=== PATIENT | female | born 1950 | race Caucasian/White ===

== ENCOUNTER 2018-10-21 03:11 | Inpatient (IN) ==
--- NOTE | 2018-10-21 03:38 | PROVIDER DOCUMENTATION ---
HPI-Respiratory General - General Stated Complaint: rhonchi Time Seen by Provider: 10/21/18 03:28 Source: EMS Allergies/Adverse Reactions: Patient Allergies Allergy/AdvReac Type Severity Reaction Status Date / Time Penicillins Allergy RASH Verified 06/24/14 16:35 Home Medications: Home Medication List Medication Instructions Recorded Confirmed Last Taken Type Acetaminophen [Tylenol] 325 mg PO Q6H PRN PRN 06/24/14 06/24/14 06/23/14 17:00 History Bisacodyl [Dulcolax] 10 mg NV DAILY 06/24/14 06/24/14 06/22/14 21:00 History Calcium Carbonate/Vitamin D3 1 tab PO DAILY 06/24/14 06/24/14 06/24/14 09:00 History [Caltrate 600 Plus D3 Tablet] Divalproex [Depakote] 125 mg PO BID 06/24/14 06/24/14 06/24/14 09:00 History Docusate Sodium [Silace] 20 mg PO BID 06/24/14 06/24/14 06/23/14 09:00 History Duloxetine [Cymbalta] 30 mg PO DAILY 06/24/14 06/24/14 06/24/14 09:00 History Furosemide [Lasix] 20 mg PO DAILY 06/24/14 06/24/14 06/24/14 09:00 History Lactose-Reduced Food [Ensure 1 dose PO BID 06/24/14 06/24/14 06/24/14 09:00 History Original] Lactulose 30 ml PO DAILY 06/24/14 06/24/14 06/24/14 08:00 History M-Vit,Tx,Iron,Mins/Calc/Folic 1 tab PO DAILY 06/24/14 06/24/14 06/24/14 09:00 History [Therapeutic M Tablet] Metoclopramide [Reglan] 10 mg PO TID AC 06/24/14 06/24/14 06/24/14 05:00 History Omeprazole [Prilosec] 20 mg PO DAILY 06/24/14 06/24/14 06/24/14 05:00 History Potassium Chloride E.r. [Micro-K] 10 meq PO DAILY 06/24/14 06/24/14 06/24/14 09:00 History Protein Hydrolysate,Milk [Liquid 30 ml PO TID 06/24/14 06/24/14 06/24/14 09:00 History Protein Fortifier] Risperidone [Risperdal] 0.5 mg PO QHS 06/24/14 06/24/14 06/23/14 21:00 History SIMVAstatin [Zocor] 40 mg PO QHS 06/24/14 06/24/14 06/24/14 History Scopolamine 1.5 mg/72 Hr Patch 1 each TD Q72H 06/24/14 06/24/14 06/24/14 07:00 History [Transderm-Scop] Sennosides/Docusate Sodium [Senna 1 tab PO BID 06/24/14 06/24/14 06/24/14 09:00 History Laxative Tablet] Clonazepam [Klonopin] 1 mg PO BID #0 06/28/14 06/24/14 06/24/14 09:00 Rx Oseltamivir [Tamiflu] 75 mg PO BID #0 capsule 06/28/14 Unknown Rx - History of Present Illness-Resp Nature of Presenting Problem: Transported from [facility] for hypoxemia and rales/rhonchi. found w/ pale color and p ox of 60%, better w/ non-rebreather in transport. Hx includes COPD,SCHIZOAFFECTIVE,BIPOLAR,ANEMIA,DEMENTIA Review of Systems - Adult - REVIEW OF SYSTEMS - ADULT Constitutional: reports: no symptoms reported, fever (?) Eyes: reports: no symptoms reported Ears, Nose, Mouth & Throat: reports: no symptoms reported Cardiovascular: reports: no symptoms reported Respiratory: reports: no symptoms reported Gastrointestinal: reports: no symptoms reported Genitourinary: reports: no symptoms reported Musculoskeletal: reports: no symptoms reported Integumentary: reports: no symptoms reported Neurological: reports: no symptoms reported Psychiatric: reports: no symptoms reported Endocrine: reports: no symptoms reported Hematologic/Lymphatic: reports: no symptoms reported Allergic/Immunologic: reports: no symptoms reported All Other Systems: Reviewed and Negative Past History - Adult - PAST MEDICAL HISTORY-ADULT Review of Records: reports: Nursing Assessment Review, Medications Reviewed, Social history reviewed & non-contributory. Major Childhood Illnesses: reports: denies history Cardiovascular: reports: denies history, CHF, HTN, hyperlipidemia Respiratory: reports: other (chronic respiratory failure) Gastrointestinal: reports: denies history Obstetrical/Gynecological: reports: denies history Genitourinary: reports: denies history Musculoskeletal: reports: denies history Neurological: reports: denies history Psychiatric: reports: anxiety Endocrine/Immune: reports: denies history, anemia Other Conditions: reports: denies history - IMMUNIZATION STATUS Childhood Immunizations: See Nurse Assessment Flu Vaccine: See Nurse Assessment - FAMILY HISTORY Family History: reviewed, not pertinent Physical Exam-General - PHYSICAL EXAM-ADULT Initial Vital Signs Reviewed: Yes - CONSTITUTIONAL General Appearance: appears well, alert, mild distress - EYES Eyes: PERRL/EOMI - HEAD, EARS, NOSE, MOUTH & THROAT HENMT: normocephalic/atraumatic, moist mucous membranes - NECK Neck: non-tender, full range of motion, supple - RESPIRATORY Respiratory: crackles, rales, rhonchi, increased rate. 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, grossly normal - PSYCHIATRIC Psych/Mental Status: normal mood/affect, disheveled, other (SIGNIFICANT BASELINE DEMENTIA AND LACK OF INSIGHT, PT IS VERBAL, WANTS COFFEE.) - HEART Score HEART Score: History: Slightly Suspicious HEART Score: ECG: Non-Specific Repolarization Disturbance/LBBB/PM HEART Score: Age: > or = 65 Years HEART Score: Risk Factors for Atherosclerotic Disease: No Risk Factors Known HEART Score: Troponin: < or = Normal Limit Total HEART Score:: 3 Progress - PLAN OF CARE/RESULTS Progress/Plan/Lab Results: Vital Signs - 8 hr 10/21/18 03:17 10/21/18 03:38 10/21/18 03:47 Temperature 98.4 F Pulse Rate 112 H 111 H 109 H Respiratory Rate 28 H 19 20 Blood Pressure 174/114 163/133 134/81 O2 Sat by Pulse Oximetry 95 93 L 10/21/18 04:01 10/21/18 04:16 10/21/18 04:32 Temperature Pulse Rate 108 H 109 H 106 H Respiratory Rate 33 H 18 19 Blood Pressure 152/101 153/106 130/72 O2 Sat by Pulse Oximetry 94 L 93 L 93 L 10/21/18 04:46 10/21/18 05:01 10/21/18 05:16 Temperature Pulse Rate 103 H 98 H 100 H Respiratory Rate 25 H 25 H 25 H Blood Pressure 160/86 139/89 129/80 O2 Sat by Pulse Oximetry 93 L 93 L 93 L 10/21/18 03:56 Influenza Screen - Final Nasopharyngeal Laboratory Results - last 24 hr 10/21/18 10/21/18 10/21/18 03:33 03:33 03:33 WBC 8.43 RBC 4.52 Hgb 14.5 Hct 48.2 H MCV 106.6 H MCH 32.1 H MCHC 30.1 L RDW Std Deviation 15.3 H Plt Count 151 MPV 12.1 H Immature Gran % (Auto) 1.1 H Neut % (Auto) 68.8 Lymph % (Auto) 18.5 L Arthur % (Auto) 8.7 Eos % (Auto) 2.4 Baso % (Auto) 0.5 Immature Gran # (Auto) 0.09 H Neut # (Auto) 5.81 Lymph # (Auto) 1.56 Arthur # (Auto) 0.73 H Eos # (Auto) 0.20 Baso # (Auto) 0.04 Sodium 148 H Potassium 4.4 Chloride 103 Carbon Dioxide 36 H Anion Gap 9 BUN 16 Creatinine 0.4 L Estimated GFR/1.73 m2 > 60 BUN/Creatinine Ratio 40 Glucose 166 H Calculated Osmolality 299 Calcium 9.4 Magnesium Ammonia Troponin T [id number]-M-Imxppqpmuvq Pept Plasma Lactate Urine Source Urine Color Urine Turbidity Urine pH Ur Specific Rico Urine Protein Ur Glucose (Stick) Ur Ketones (Stick) Urine Blood Urine Nitrite Urine Bilirubin Urobilinogen Dipstick Urine Leukocytes Urine WBC (Auto) Urine RBC (Auto) U Epithel Cells (Auto) Urine Bacteria (Auto) Urine Crystals Small Round Cells Urine Casts Urine Yeast-like Cells Blood Type A POSITIVE 10/21/18 10/21/18 10/21/18 03:33 03:33 03:33 WBC RBC Hgb Hct MCV MCH MCHC RDW Std Deviation Plt Count MPV Immature Gran % (Auto) Neut % (Auto) Lymph % (Auto) Arthur % (Auto) Eos % (Auto) Baso % (Auto) Immature Gran # (Auto) Neut # (Auto) Lymph # (Auto) Arthur # (Auto) Eos # (Auto) Baso # (Auto) Sodium Potassium Chloride Carbon Dioxide Anion Gap BUN Creatinine Estimated GFR/1.73 m2 BUN/Creatinine Ratio Glucose Calculated Osmolality Calcium Magnesium 2.2 Ammonia Troponin T Scg-W-Hasawinlnrt Pept 689 H Plasma Lactate 1.4 Urine Source Urine Color Urine Turbidity Urine pH Ur Specific Rico Urine Protein Ur Glucose (Stick) Ur Ketones (Stick) Urine Blood Urine Nitrite Urine Bilirubin Urobilinogen Dipstick Urine Leukocytes Urine WBC (Auto) Urine RBC (Auto) U Epithel Cells (Auto) Urine Bacteria (Auto) Urine Crystals Small Round Cells Urine Casts Urine Yeast-like Cells Blood Type 10/21/18 10/21/18 10/21/18 03:33 03:33 03:56 WBC RBC Hgb Hct MCV MCH MCHC RDW Std Deviation Plt Count MPV Immature Gran % (Auto) Neut % (Auto) Lymph % (Auto) Arthur % (Auto) Eos % (Auto) Baso % (Auto) Immature Gran # (Auto) Neut # (Auto) Lymph # (Auto) Arthur # (Auto) Eos # (Auto) Baso # (Auto) Sodium Potassium Chloride Carbon Dioxide Anion Gap BUN Creatinine Estimated GFR/1.73 m2 BUN/Creatinine Ratio Glucose Calculated Osmolality Calcium Magnesium Ammonia 43 Troponin T < 0.010 [id number]-P-Uksgwdytmok Pept Plasma Lactate Urine Source CATH Urine Color YELLOW Urine Turbidity HAZY Urine pH 6.0 Ur Specific Rico 1.036 Urine Protein 300 A Ur Glucose (Stick) NEGATIVE Ur Ketones (Stick) TRACE A Urine Blood NEGATIVE Urine Nitrite NEGATIVE Urine Bilirubin NEGATIVE Urobilinogen Dipstick 4 A Urine Leukocytes NEGATIVE Urine WBC (Auto) 20-40 A Urine RBC (Auto) 10-20 A U Epithel Cells (Auto) <10 Urine Bacteria (Auto) 4+ Urine Crystals NONE SEEN Small Round Cells NONE SEEN Urine Casts NONE SEEN Urine Yeast-like Cells NONE SEEN Blood Type Orders Category Date Time Status Cardiac Monitoring DIRECTED Care 10/21/18 03:29 Active Saline Loc NOW Care 10/21/18 03:29 Active CHEST-PORTABLE [RAD] Stat Exams 10/21/18 03:[address] THORAX W/CONTRAST [CT] Stat Exams 10/21/18 05:07 Completed ABORH [BBK] Stat Lab 10/21/18 03:33 Completed AMMONIA [CHEM] Stat Lab 10/21/18 03:33 Completed BASIC METABOLIC PANEL [CHEM] Stat Lab 10/21/18 03:33 Completed CBC WITH ELECTRONIC DIFF [HEME] Stat Lab 10/21/18 03:33 Completed INFLUENZA SCREEN A/B Stat Lab 10/21/18 03:56 Completed LACTATE, PLASMA [CHEM] Stat Lab 10/21/18 03:33 Completed MAGNESIUM [CHEM] Stat Lab 10/21/18 03:33 Completed PRO B-NATRIURETIC PEPTIDE Stat Lab 10/21/18 03:33 Completed TROPONIN T Stat Lab 10/21/18 03:33 Completed URINALYSIS W/POSS RFLX CULT [URINALYSIS] Stat Lab 10/21/18 03:56 Completed URINE MANUAL MICROSCOPIC [URINALYSIS] Stat Lab 10/21/18 03:56 Completed EKG [EKG] Stat Ther 10/21/18 03:29 Ordered Result Diagrams: 10/21/18 03:33 10/21/18 03:33 - REASSESSMENT Reassessment #1 Time Reassessed: 06:32 Status: unchanged (DISCUSSED FINDINGS ADMISSION WITH SISTER OF PT, POWER OF A TTORNEY FOR MRS CABALLERO) - CONSULTS/PCP/HOSPITALIST Notification #1 *Consult/PCP/Hospitalist*: DR Brandie SNOW Time Discussed: 06:39 Consult Disposition: Admit ([place] 05/10 q 12) Departure - Departure Date of Disposition Decision: 10/21/18 Time of Disposition Decision: 06:41 DIAGNOSIS: Hypoxemia, Pulmonary emboli Disposition: ADMITTED INPATIENT 09 Certified Medical Emergency: Emergent Condition: Stable - Critical Care Note This patient required my direct & personal management of CC.: Yes Total Time (mins): 30 Critical Care Statement: This patient required my direct personal management to treat or rule out processes, the absence of which, could potentiallly result in sudden, clinically significant life or limb threatening deterioration. Attestation - Physician/ ALINE Attestation Patient care was provided by Advanced Practice Provider:: No The physician spent face to face time with patient:: Yes Advanced Practice Provider documentation review:: Supervising physician onsite and consulted in the evaluation and care of this patient. The physician did have a face to face encounter with the patient.
[2018-10-21 04:19] LABS: BASO% 0.5 % (0.0-0.8); EOS% 2.4 % (0.0-10.0); HEMATOCRIT 48.2 % (37.0-47.0); HEMOGLOBIN 14.5 g/dL (12.0-16.0); LYMPH% 18.5 % (20.5-51.1); MCH 32.1 PG (27-31); MCHC 30.1 g/dL (33-37); MCV 106.6 FL (81-99); MONO% 8.7 % (1.7-9.3); MPV 12.1 FL (7.4-10.4); NEUT% 68.8 % (42.2-75.2); PLT 151 X1000 (130-400); RBC 4.52 XMIL (4.2-5.4); RDW 15.3 % (11.5-14.5); WBC 8.43 X1000 (4.8-10.8)
[2018-10-21 04:20] LABS: BASO# 0.04 X1000 (0.0-0.2); IMM GRAN# 0.09 X1000 (0.0-0.04); IMM GRAN% 1.1 % (0.0-0.5); LYMPH# 1.56 X1000 (1.2-3.4); MONO# 0.73 X1000 (0.11-0.59); NEUT# 5.81 X1000 (1.4-6.5)
[2018-10-21 04:24] LABS: AGAP 9; BUN 16 mg/dL (8-22); CALCIUM 9.4 mg/dL (8.8-10.2); CHLORIDE 103 mmol/L (98-107); COSMO 299; CREATININE 0.4 mg/dL (0.5-0.9); ESTIMATED GFR > 60; GLUCOSE 166 mg/dL (70-104); POTASSIUM 4.4 mmol/L (3.5-5.1); SODIUM 148 mmol/L (136-145); TCO2 36 mmol/L (25-35)
[2018-10-21 04:44] LABS: URINE SOURCE CATH
[2018-10-21 04:46] LABS: BILIRUBIN URINE NEGATIVE (NEGATIVE); BLOOD URINE NEGATIVE (NEGATIVE); COLOR YELLOW; GLUCOSE URINE NEGATIVE (NEGATIVE); KETONE URINE TRACE mg/dL (NEGATIVE); LEUKOCYTES URINE NEGATIVE (NEGATIVE); NITRITE URINE NEGATIVE (NEGATIVE); PROTEIN URINE 300 mg/dL (NEGATIVE); SP GRAVITY URINE 1.036; TURBIDITY URINE HAZY (CLEAR); UROBILINOGEN URINE 4 mg/dL (NORMAL)
[2018-10-21 05:12] LABS: UR EPITHELIAL CELLS <10 /HPF (<10); URINE BACTERIA 4+ /HPF; URINE WBC 20-40 /HPF (<10)
[2018-10-21 05:27] LABS: URINE CASTS NONE SEEN; URINE CRYSTALS NONE SEEN; URINE SMALL ROUND CELLS NONE SEEN; URINE YEAST NONE SEEN
--- NOTE | 2018-10-21 05:46 | Diag Imaging Result Doc PS360 ---
EXAM: CHEST-PORTABLE HISTORY: hypoxic TECHNIQUE: Chest single view COMPARISON: 06/27/2014 FINDINGS: Poor inspiratory effort. The left hemidiaphragm is elevated and the mediastinum is shifted to the right similar to prior studies. The heart is mildly prominent. Mild increased interstitial markings apparently representing fibrosis. IMPRESSION: Stable chest. Electronically signed by Edmond Armendariz 10/21/2018 5:43 AM
--- NOTE | 2018-10-21 06:11 | Diag Imaging Result Doc PS360 ---
EXAM: CT THORAX W/CONTRAST HISTORY: acute sob, hypoxic, TECHNIQUE: CT chest with intravenous contrast COMPARISON: None. FINDINGS: The left hemidiaphragm is elevated. The stomach and transverse colon beneath the elevated hemidiaphragm. Trace pleural fluid bilaterally. Trace pericardial fluid. No thoracic aortic aneurysm or dissection. No enlarged lymph nodes. Small nodular upper lobe infiltrates. There is also right lower lobe atelectasis and infiltrates. Mild scoliosis. The thyroid is enlarged, particularly the left lobe and there are several small nodules. Limited images through the upper abdomen reveal fatty infiltration of the liver. IMPRESSION: 1.Elevated left hemidiaphragm similar to multiple prior plain films. 2.Trace pleural fluid and pericardial fluid 3.Small bilateral infiltrates 4.Enlarged thyroid This exam was performed using automated exposure control, adjustment of mA or kV according to patient size, and/or use of iterative reconstruction technique. Electronically signed by Edmond Armendariz 10/21/2018 6:09 AM
[2018-10-21] MEDS ORDERED: LOVENOX 1 MG/KG SUBQ ONE (06:42)
[2018-10-21] MEDS ORDERED: ROCEPHIN 1 GM in NS 50 ML IV ONE (06:43)
--- NOTE | 2018-10-21 07:09 | EKG Report ---
Test Performed on : 10/21/2018 03:19:37 AM Test Reason : hypoxemia Blood Pressure : / mmHG Vent. Rate : 110 BPM Atrial Rate : 110 BPM P-R Int : 128 ms QRS Dur : 080 ms QT Int : 356 ms P-R-T Axes : 052 089 044 degrees QTc Int : 481 ms Sinus tachycardia. Possible Left atrial enlargement Low voltage QRS Septal infarct , age undetermined Abnormal ECG When compared with ECG of 27-JUN-2014 09:54, Vent. rate has increased BY 47 BPM Septal infarct is now present Unconfirmed Result
[2018-10-21] MEDS ORDERED: LOVENOX SUBQ ONE (07:15)
[2018-10-21] MEDS ORDERED: ZOFRAN IV PRN (08:42)
[2018-10-21] MEDS ORDERED: DUONEB (A & A) INH PRN (08:56)
[2018-10-21] MEDS ORDERED: ROCEPHIN 1 GM in NS 50 ML IV SCH (09:00)
[2018-10-21] MEDS: ZITHROMAX PO SCH (10:23)
[2018-10-21] MEDS: DUONEB (A & A) INH SCH ×4 (12:20→22:45)
--- NOTE | 2018-10-21 13:21 | HISTORY AND PHYSICAL ---
CHIEF COMPLAINT: Low oxygen. HISTORY OF PRESENT ILLNESS: This is a 68-year-old female with a prior history of hypertension, hyperlipidemia, congestive heart failure, chronic respiratory failure, and anxiety. 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 According to the chart, the patient was found pale with a saturation of 60% at the [facility]. Nonrebreather was applied by EMS en route, and saturations increased to 93% to 95%. Shortly after arrival to the emergency room, she was able to be placed on 4 L nasal cannula, and saturations have stayed 93% to 95%. The patient has substantial mental retardation as well as COPD, schizoaffective bipolar disorder and dementia. The patient states that she has had a thick cough for the last 2 or 3 days, stating that it is very hard to cough "that stuff in my lungs up." She is unable to give any other history. PAST MEDICAL HISTORY: Hypertension, hyperlipidemia, chronic respiratory failure, COPD, schizoaffective, bipolar, anemia and dementia. PAST SURGICAL HISTORY: None noted. SOCIAL HISTORY: She lives at [facility]. 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 Her sister does have her power of trust and estates attorney. ALLERGIES: Allergic to penicillin with unknown reaction. HOME MEDICATIONS: A list will be obtained by the nursing staff, and once verified, we will review and restart as appropriate. REVIEW OF SYSTEMS: Unable to be obtained from the patient, as she is not a reliable historian. PHYSICAL EXAMINATION: GENERAL: This is a 68-year-old female who is lying in the stretcher in the emergency room, in no distress. VITAL SIGNS: Blood pressure is 180/90 with a heart rate of 98, respirations 20 to 22, temperature 97.7 with O2 saturations 93% to 95% on 4 L nasal cannula. CARDIOVASCULAR: Regular rate and rhythm. S1 and S2 are appreciated. She has no lower extremity edema. She does have bilateral foot drop with muscle wasting. Pedal pulses are 2+ bilateral. PULMONARY: She has rhonchi, wheezing and crackles bilateral, with no increased work of breathing noted. GASTROINTESTINAL: Abdomen was soft, nontender and nondistended. Bowel sounds in all 4 quadrants. NEUROLOGICAL: She is alert. She is oriented to person. She is very pleasant and cooperative. DIAGNOSTIC DATA: WBC is 8.4 with hemoglobin 14.5, hematocrit 48.2, platelets 151. Sodium is 148, potassium 4.4, BUN was 16, creatinine 0.4 with a glucose of 166. Troponin is negative. Urinalysis is positive for 20 to 40 white blood cells, 10 to 20 red blood cells and less than 10 epithelial cells. This is a cathed specimen. Microbiology: Blood cultures, urine culture are pending. Influenza screen is negative for flu A and B. ASSESSMENT: 1. Acute hypoxic respiratory failure. 2. Left-sided pulmonary embolus with questionable right lower lobe pulmonary embolus. 3. Bilateral infiltrates and atelectasis. 4. Productive cough. 5. History of chronic obstructive pulmonary disease. 6. Hypertension. 7. History of schizoaffective bipolar disorder with dementia. PLAN: The patient will be admitted to the Medical Floor, placed on telemetry. We will continue with supplemental oxygen, start DuoNebs q.4 hours and q.2 hours p.r.n. We will give her a regular diet. She will be placed on telemetry. We will draw hypercoagulable profile. Check a TSH. Repeat a CBC and CMP in the morning. She was given Rocephin in the emergency room. We will continue Rocephin and add Zithromax. We will continue with Lovenox 1 mg/kg b.i.d. We will consult [employer] to check on affordability of Eliquis or Xarelto. Further treatments pending hospital course. Dictated by ANGEL Burton for Miriam Hall MD cc: ANGEL Burton MD
[2018-10-21] MEDS ORDERED: D5W 1,000 ML IV SCH (13:45)
--- NOTE | 2018-10-21 16:07 | ECHO REPORT ---
ORDER DATE: 10/21/2018 INTERPRETING PHYSICIAN: Dr. Vinod Wisdom ECHOCARDIOGRAPHIC MEASUREMENTS: 1. Interventricular septum: 0.9 cm. 2. Posterior wall: 0.9 cm. 3. Diastolic diameter: 3.5 cm. 4. Left atrium: 2.6 cm. 5. Aortic root: 2.8 cm. SUMMARY OF THE 2-DIMENSIONAL IMAGIN. Technically suboptimal study. Poor acoustic window. 2. Aortic valve leaflets are trileaflet. 3. Mitral valve was normal. 4. Tricuspid valve was normal. There is mild tricuspid regurgitation. 5. Peak velocity across the aortic valve less than 2 m/sec. There is no aortic stenosis or regurgitation. 6. There is mild tricuspid regurgitation. Peak velocity across the tricuspid valve less than 2 m/sec. 7. Optison was used to assess left ventricular systolic function. 8. Normal left ventricular cavity size. Estimated ejection fraction of 60%. 9. There is no pericardial effusion or obvious intracardiac mass or thrombus seen. cc: MD Miriam Arriola MD
[2018-10-21] MEDS: MUCOMYST 20% INH SCH (19:20)
[2018-10-21] MEDS: COREG PO SCH (20:41)
[2018-10-21] MEDS: LOVENOX SUBQ SCH (20:42)
[2018-10-21 23:03] LABS: AGAP 10; BUN 14 mg/dL (8-22); CALCIUM 8.3 mg/dL (8.8-10.2); CHLORIDE 99 mmol/L (98-107); COSMO 283; CREATININE 0.5 mg/dL (0.5-0.9); ESTIMATED GFR > 60; GLUCOSE 130 mg/dL (70-104); POTASSIUM 3.8 mmol/L (3.5-5.1); SODIUM 141 mmol/L (136-145); TCO2 32 mmol/L (25-35)
[2018-10-22] MEDS: DUONEB (A & A) INH SCH ×6 (03:10→23:05)
[2018-10-22] MEDS: PRILOSEC PO SCH (07:00)
[2018-10-22] MEDS ORDERED: REGLAN PO SCH (07:00)
[2018-10-22 07:38] LABS: BASO# 0.02 X1000 (0.0-0.2); BASO% 0.3 % (0.0-0.8); EOS# 0.45 X1000 (0.0-0.7); EOS% 5.8 % (0.0-10.0); HEMATOCRIT 43.4 % (37.0-47.0); HEMOGLOBIN 14.2 g/dL (12.0-16.0); IMM GRAN# 0.05 X1000 (0.0-0.04); IMM GRAN% 0.6 % (0.0-0.5); LYMPH# 1.48 X1000 (1.2-3.4); MCH 33.5 PG (27-31); MCHC 32.7 g/dL (33-37); MCV 102.4 FL (81-99); MONO# 0.66 X1000 (0.11-0.59); MONO% 8.5 % (1.7-9.3); MPV 11.8 FL (7.4-10.4); NEUT# 5.15 X1000 (1.4-6.5); NEUT% 65.8 % (42.2-75.2); PLT 151 X1000 (130-400); RBC 4.24 XMIL (4.2-5.4); WBC 7.81 X1000 (4.8-10.8)
[2018-10-22] MEDS: MUCOMYST 20% INH SCH ×2 (07:45→19:40)
[2018-10-22 08:11] LABS: AGAP 9; ALBUMIN 3.3 g/dL (3.5-5.0); ALKALINE PHOSPHATASE 89 U/L (32-104); BUN 12 mg/dL (8-22); CALCIUM 8.4 mg/dL (8.8-10.2); CHLORIDE 96 mmol/L (98-107); COSMO 278; CREATININE 0.5 mg/dL (0.5-0.9); ESTIMATED GFR > 60; GLUCOSE 149 mg/dL (70-104); GOT 22 U/L (10-30); GPT 40 U/L (10-36); SODIUM 138 mmol/L (136-145); TCO2 33 mmol/L (25-35); TOTAL BILIRUBIN 0.56 mg/dL (0.20-1.00); TOTAL PROTEIN 6.7 g/dL (6.3-8.3)
[2018-10-22] MEDS ORDERED: PRILOSEC PO SCH (09:00)
[2018-10-22] MEDS: LOVENOX SUBQ SCH ×2 (09:53→19:30)
[2018-10-22] MEDS: COREG PO SCH ×2 (09:54→21:15)
[2018-10-22] MEDS: ZITHROMAX PO SCH (09:54)
[2018-10-22] MEDS: ROCEPHIN 1 GM in NS 50 ML IV SCH (09:54)
[2018-10-22] MEDS: CALTRATE 600 + D PO SCH (09:54)
[2018-10-22] MEDS: KLONOPIN PO SCH ×3 (09:59→17:07)
[2018-10-22] MEDS: SEROQUEL PO SCH ×2 (09:59→21:16)
[2018-10-22] MEDS: PERICOLACE PO SCH ×2 (09:59→21:15)
[2018-10-22] MEDS: DULCOLAX PR SCH (09:59)
[2018-10-22] MEDS: THERA M PLUS PO SCH (09:59)
[2018-10-22] MEDS: TRILEPTAL PO SCH ×2 (10:00→21:16)
[2018-10-22] MEDS: DEPAKOTE PO SCH ×2 (10:00→21:15)
--- NOTE | 2018-10-22 13:54 | PROGRESS NOTE ---
DATE: 10/22/2018 SUBJECTIVE: The patient is resting in bed. She does have increased secretions in her upper airway. OBJECTIVE: Vital Signs: Temperature 98.3 degrees, blood pressure 138/70, heart rate 85, respirations 20, O2 saturation 95% on 3 L nasal cannula. General: This is a morbidly obese female, lying in bed, in no acute distress. Heart: S1, S2. Normal. Lungs: Equal air entry bilaterally. Coarse breath sounds. Abdomen: Positive bowel sounds. Soft, nontender, nondistended. Extremities: No edema. No cyanosis. No calf tenderness. Neurologic: The patient is awake and alert and able to answer questions. LABORATORY DATA: White blood cell count 7.8, hemoglobin 14, hematocrit 43, platelets 151,000. Sodium 138, potassium 4, chloride 96, CO2 33, BUN 12, creatinine 0.5, glucose 149. ASSESSMENT AND PLAN: 1. Acute pulmonary embolism. Continue with full dose Lovenox and supplemental oxygen. 2. Pneumonia. Continue on IV antibiotic therapy and oxygen. 3. Urinary tract infection. Continue on Rocephin. 4. Anxiety disorder. Continue on Klonopin. 5. Chronic constipation. Continue with the current laxative therapy as ordered. 6. Bipolar disorder. Continue on the current psychiatric medications. 7. Schizoaffective disorder. Continue on Risperdal. 8. COPD. Continue on bronchodilator therapy. cc: Miriam Hall MD MTDD
[2018-10-22] MEDS: TRANSDERM-SCOP TD SCH (17:12)
[2018-10-22] MEDS: RISPERDAL PO SCH (21:15)
[2018-10-22] MEDS: ZOCOR PO SCH (21:16)
[2018-10-23] MEDS: DUONEB (A & A) INH SCH ×6 (03:25→23:20)
[2018-10-23] MEDS: PRILOSEC PO SCH (06:32)
[2018-10-23 07:22] LABS: HEMATOCRIT 42.4 % (37.0-47.0); HEMOGLOBIN 13.4 g/dL (12.0-16.0); MCH 32.5 PG (27-31); MCHC 31.6 g/dL (33-37); MCV 102.9 FL (81-99); RBC 4.12 XMIL (4.2-5.4); RDW 15.4 % (11.5-14.5); WBC 6.73 X1000 (4.8-10.8)
[2018-10-23 07:42] LABS: AGAP 10; BUN 16 mg/dL (8-22); CALCIUM 8.7 mg/dL (8.8-10.2); CHLORIDE 99 mmol/L (98-107); COSMO 284; CREATININE 0.6 mg/dL (0.5-0.9); ESTIMATED GFR > 60; GLUCOSE 130 mg/dL (70-104); POTASSIUM 3.8 mmol/L (3.5-5.1); SODIUM 141 mmol/L (136-145); TCO2 32 mmol/L (25-35)
[2018-10-23] MEDS: ROCEPHIN 1 GM in NS 50 ML IV SCH (07:50)
[2018-10-23] MEDS: MUCOMYST 20% INH SCH ×2 (08:23→19:45)
[2018-10-23] MEDS: LOVENOX SUBQ SCH ×2 (10:43→21:19)
[2018-10-23] MEDS: TRILEPTAL PO SCH ×2 (10:44→21:21)
[2018-10-23] MEDS: DEPAKOTE PO SCH ×2 (10:44→21:20)
[2018-10-23] MEDS: COREG PO SCH ×2 (10:44→21:23)
[2018-10-23] MEDS: CALTRATE 600 + D PO SCH (10:44)
[2018-10-23] MEDS: THERA M PLUS PO SCH (10:44)
[2018-10-23] MEDS: ZITHROMAX PO SCH (10:45)
[2018-10-23] MEDS: SEROQUEL PO SCH ×2 (10:45→21:21)
[2018-10-23] MEDS: KLONOPIN PO SCH ×3 (10:45→21:20)
[2018-10-23] MEDS: PERICOLACE PO SCH ×2 (10:46→21:24)
[2018-10-23] MEDS: DULCOLAX PR SCH (10:59)
--- NOTE | 2018-10-23 15:00 | PROGRESS NOTE ---
DATE: 10/23/2018 SUBJECTIVE: The patient is resting comfortably. After discussion with the nursing staff it appears that the patient is aspirating when she tries to eat. OBJECTIVE: Vital Signs: Temperature 98.3, blood pressure 126/70, heart rate 86, respirations 20, O2 sats 92% on 4 L nasal cannula. Intake 480, output 1 L. General: This is a chronically ill- appearing elderly female lying in bed in no acute distress. Heart: S1, S2 normal. Regular rate and rhythm. Lungs: Diffuse breath sounds bilaterally with crackles. Abdomen: Positive bowel sounds. Soft, nontender, nondistended. Extremities: No edema, no cyanosis. Neurologic: The patient is awake and alert. LABS: White blood cell count 6.7, hemoglobin 13, hematocrit 42, platelets 150,000. Sodium 141, potassium 3.8, chloride 99, CO2 32, BUN 16, creatinine 0.6, glucose 130, calcium 8.7. ASSESSMENT AND PLAN: 1. Acute hypoxemic respiratory failure. Multifactorial. The patient has a pulmonary embolism and aspiration pneumonia. 2. Acute pulmonary embolism. Continue on full-dose Lovenox and supplemental oxygen. 3. Aspiration pneumonia. Continue with antibiotic therapy, supplemental oxygen and bronchodilator therapy. 4. Urinary tract infection. Continue on Rocephin. 5. Dysphagia. Will order a modified barium swallow to be done tomorrow. In the meantime, the patient will be made n.p.o. 6. Bipolar disorder. Aware. 7. Schizoaffective disorder. Aware. 8. COPD. Continue with bronchodilator therapy and supplemental oxygen. cc: Miriam Hall MD
[2018-10-23] MEDS: RISPERDAL PO SCH (21:21)
[2018-10-23] MEDS: ZOCOR PO SCH (21:24)
[2018-10-24] MEDS: DUONEB (A & A) INH SCH ×6 (03:30→22:42)
--- NOTE | 2018-10-24 06:41 | Diag Imaging Result Doc PS360 ---
EXAM: CHEST-1 VIEW HISTORY: pneumonia TECHNIQUE: Chest single view COMPARISON: 10/21/2018 FINDINGS: The lungs are well expanded. The patient is rotated to the left. The left hemidiaphragm is elevated. There are mild increased interstitial markings in the lower lungs. The overall appearance of the chest is similar to the prior exam. IMPRESSION: Stable chest Electronically signed by Edmond Armendariz 10/24/2018 6:39 AM
--- NOTE | 2018-10-24 07:23 | EKG Report ---
Test Performed on : 10/21/2018 10:29:31 PM Test Reason : run of v-tach per telemetry Blood Pressure : / mmHG Vent. Rate : 081 BPM Atrial Rate : 081 BPM P-R Int : 140 ms QRS Dur : 086 ms QT Int : 420 ms P-R-T Axes : 030 081 043 degrees QTc Int : 487 ms Normal sinus rhythm. Normal ECG When compared with ECG of 21-OCT-2018 03:19, (Unconfirmed) No significant change was found Confirmed by Juan BENEDICT, Jose Guadalupe Michelle ([id number]) on 10/25/2018 7:26:55 PM
[2018-10-24 07:53] LABS: HEMATOCRIT 42.2 % (37.0-47.0); HEMOGLOBIN 13.2 g/dL (12.0-16.0); MCH 32.8 PG (27-31); MCHC 31.3 g/dL (33-37); MCV 104.7 FL (81-99); MPV 12.3 FL (7.4-10.4); RBC 4.03 XMIL (4.2-5.4); RDW 15.5 % (11.5-14.5); WBC 8.26 X1000 (4.8-10.8)
[2018-10-24] MEDS: MUCOMYST 20% INH SCH ×2 (08:25→19:38)
[2018-10-24] MEDS: ROCEPHIN 1 GM in NS 50 ML IV SCH (09:45)
[2018-10-24] MEDS: LOVENOX SUBQ SCH ×2 (09:45→21:47)
--- NOTE | 2018-10-24 11:10 | Diag Imaging Result Doc PS360 ---
BA SWALLOW W/VIDEO SPEECH THER - 10/24/2018 INDICATION: aspiration TECHNIQUE: Total fluoroscopy time was 18 seconds. 94 images were obtained. COMPARISON: CT chest 10/21/2018 FINDINGS: There is no aspiration or penetration. There was quick swallowing of liquid and pureed solid consistencies. There is a very large hiatal hernia as delineated on prior exams. No obstruction or stricture of the esophagus. IMPRESSION: Very large hiatal hernia. No aspiration or penetration. Electronically signed by Hadley Billingsley 10/24/2018 11:08 AM
[2018-10-24] MEDS: CALTRATE 600 + D PO SCH (13:51)
[2018-10-24] MEDS: PERICOLACE PO SCH ×2 (13:52→21:48)
[2018-10-24] MEDS: COREG PO SCH ×2 (13:52→21:47)
[2018-10-24] MEDS: KLONOPIN PO SCH ×2 (13:52→21:46)
[2018-10-24] MEDS: TRILEPTAL PO SCH ×2 (13:52→21:49)
[2018-10-24] MEDS: SEROQUEL PO SCH ×2 (13:52→21:49)
[2018-10-24] MEDS: THERA M PLUS PO SCH (13:52)
[2018-10-24] MEDS: DULCOLAX PR SCH (13:53)
[2018-10-24] MEDS: PRILOSEC PO SCH (13:53)
[2018-10-24] MEDS: DEPAKOTE PO SCH ×2 (13:53→21:48)
[2018-10-24] MEDS: ZYVOX 600 MG/D5W 600 MG/300 ML IVPB IV SCH (13:56)
[2018-10-24] MEDS: MAXIPIME 2 GM in NS 100 ML IV SCH (13:56)
[2018-10-24 16:57] LABS: ALLEN TEST YES; BE 12.6 mmoll (-3.0-3.0); BLOOD TYPE ARTERIAL; HCO3-(ACT) 34.7 mmoll (20.0-26.0); METHB 1.1 % (0.0-1.5); O2(CT) 18.2 mL/dL (15.0-23.0); O2HB 96.8 % (95.0-99.0); PO2(98.6) 265 mmHg (60-100); SAMPLE BLOOD; SAO2 100.1 % (95.0-100.0); THB 12.9 g/dL (11.5-17.4); pH(98.6) 7.41 (7.35-7.45)
[2018-10-24 16:59] LABS: MODALITY PRB; PCO2(98.6) 63 mmHg (35-45)
[2018-10-24] MEDS: RISPERDAL PO SCH (21:48)
[2018-10-24] MEDS: ZOCOR PO SCH (21:50)
[2018-10-25] MEDS: ZYVOX 600 MG/D5W 600 MG/300 ML IVPB IV SCH ×2 (03:11→14:40)
[2018-10-25] MEDS: DUONEB (A & A) INH SCH ×6 (03:17→23:08)
[2018-10-25] MEDS: MAXIPIME 2 GM in NS 100 ML IV SCH ×3 (05:04→16:05)
[2018-10-25] MEDS: PRILOSEC PO SCH ×2 (05:47→08:33)
[2018-10-25 07:41] LABS: HEMATOCRIT 39.7 % (37.0-47.0); HEMOGLOBIN 12.5 g/dL (12.0-16.0); MCH 33.1 PG (27-31); MCHC 31.5 g/dL (33-37); MPV 11.9 FL (7.4-10.4); RBC 3.78 XMIL (4.2-5.4); RDW 15.4 % (11.5-14.5); WBC 5.84 X1000 (4.8-10.8)
--- NOTE | 2018-10-25 07:45 | Diag Imaging Result Doc PS360 ---
EXAM: CHEST-PORTABLE INDICATION: pneumonia TECHNIQUE: One view COMPARISON: 10/24/2018 FINDINGS: The patient is rotated toward the left. Interstitial and airspace infiltrates at the mid and lower lung zones bilaterally are approximately stable. No new consolidation is identified. Cardiac silhouette is stable. IMPRESSION: Stable chest. Electronically signed by Hardeep Kamara 10/25/2018 7:42 AM
[2018-10-25 07:56] LABS: AGAP 7; BUN 13 mg/dL (8-22); CALCIUM 8.7 mg/dL (8.8-10.2); CHLORIDE 101 mmol/L (98-107); COSMO 283; CREATININE 0.5 mg/dL (0.5-0.9); ESTIMATED GFR > 60; GLUCOSE 125 mg/dL (70-104); POTASSIUM 4.1 mmol/L (3.5-5.1); SODIUM 141 mmol/L (136-145); TCO2 33 mmol/L (25-35)
[2018-10-25] MEDS: CALTRATE 600 + D PO SCH (08:32)
[2018-10-25] MEDS: PERICOLACE PO SCH ×2 (08:32→21:38)
[2018-10-25] MEDS: COREG PO SCH ×2 (08:32→21:39)
[2018-10-25] MEDS: DULCOLAX PR SCH (08:32)
[2018-10-25] MEDS: SEROQUEL PO SCH ×2 (08:32→21:38)
[2018-10-25] MEDS: TRILEPTAL PO SCH ×2 (08:32→21:38)
[2018-10-25] MEDS: THERA M PLUS PO SCH (08:32)
[2018-10-25] MEDS: LOVENOX SUBQ SCH ×2 (08:33→21:39)
[2018-10-25] MEDS: DEPAKOTE PO SCH ×2 (08:33→21:38)
[2018-10-25] MEDS: KLONOPIN PO SCH ×3 (09:10→21:38)
[2018-10-25] MEDS: MUCOMYST 20% INH SCH ×2 (11:31→19:50)
[2018-10-25] MEDS ORDERED: MOTRIN PO PRN (13:32)
[2018-10-25] MEDS: TRANSDERM-SCOP TD SCH (14:05)
--- NOTE | 2018-10-25 19:40 | PROGRESS NOTE ---
DATE: 10/25/2018 FAMILY PHYSICIAN: Dr. Mariah Ferraro. SUBJECTIVE: This is a 68-year-old female with prior history of hypertension, hyperlipidemia, congestive heart failure, COPD, and anxiety, presented to the emergency room via EMS profoundly hypoxic. She was found hypoxic at [facility], where she is a long- term resident. According to the chart, the patient was found pale, saturation 60%, nonrebreather was applied, and EMS on route, saturations increased to 93% and to 95% shortly after arrival to the emergency room. She was placed on 4 L and saturations stayed around 93% to 95%. The patient has history of mental retardation as well as COPD, schizoaffective, bipolar disorder, and dementia. She has had a thick cough for two to three days, by report. It is hard to cough the stuff in my lungs up, by her report. So, once again, history of hypertension, hyperlipidemia, COPD, schizoaffective, bipolar, anemia, and dementia. She feels much better. Breathing is comfortable. No complaints at the present time. OBJECTIVE: Afebrile, temperature 97.9, pulse 79, respirations 22, blood pressure 138/62. Pupils are equal and round. Lungs are clear in all lung pro. Cardiovascular exam with regular rhythm and rate without murmur or S3. Urine output was not recorded. Chest x-ray from this morning, stable chest. The patient is rotated towards the left. Interstitial and airspace infiltrates at the mid and lower lung zones bilaterally are approximately stable; no new consolidation identified. Cardiac silhouette is stable. She had a modified speech study. She had a very large hiatal hernia, no aspiration or penetration. ASSESSMENT AND PLAN: 1. Acute hypoxemic respiratory failure, multifactorial. The patient has a pulmonary embolism and aspiration pneumonia and this is better. 2. Acute pulmonary embolism. She is on full dose Lovenox and supplemental oxygen. Respiratory status much improved. 3. Aspiration pneumonia. This has improved on antibiotics. Still on supplemental oxygen and bronchodilator therapy. 4. Urinary tract infection. 5. Dysphagia. Mainly, hiatal hernia. Did not see any signs of aspiration. 6. Bipolar disorder. 7. Schizoaffective disorder. 8. Chronic obstructive pulmonary disease. She is improving and hopefully can be discharged soon. REVIEW OF ORDERS: She is on Risperdal 0.5 mg at bedtime, Zocor 40 mg at bedtime, calcium carbonate one a day, Coreg 6.25 mg b.i.d., Klonopin 1 mg t.i.d., Depakote 125 mg p.o. b.i.d., Lovenox 90 mg subcutaneously q 12 hours, Motrin 800 mg p.o. q 8 hours p.r.n., cefepime 2 grams IV q 12 hours, multivitamin daily, Prilosec 40 mg a day, Trileptal 300 mg b.i.d., Seroquel 25 mg b.i.d., scopolamine 1.5 mg q 72 hours, , linezolid 600 mg IV q 12. cc: Jose Guadalupe Martinez MD MTDD
[2018-10-25] MEDS: RISPERDAL PO SCH (21:39)
[2018-10-25] MEDS: ZOCOR PO SCH (21:39)
--- NOTE | 2018-10-25 22:07 | PROGRESS NOTE ---
DATE: 10/24/2018 SUBJECTIVE: The patient is resting comfortably in bed. She states that she is hungry. OBJECTIVE: Vital signs: Temperature is 98.6, blood pressure 127/49, heart rate 80, respirations 20, O2 saturations 95% on 3 liters nasal cannula. General: This is a morbidly obese female lying in bed in no acute distress. Heart: S1 and S2 normal. Regular rate and rhythm. Lungs: Equal air entry bilaterally. Coarse breath sounds. Abdomen: Positive bowel sounds. Soft, nontender, nondistended. Extremities: No edema. No cyanosis. Neurologic: The patient is awake and alert. LABORATORIES: White blood cell count 8.2, hemoglobin 13, hematocrit 42, platelets 165,000. ASSESSMENT AND PLAN: 1. Acute hypoxemic respiratory failure, multifactorial. 2. Acute pulmonary embolism. Continue on full-dose Lovenox. 3. Pneumonia. The modified barium swallow was negative for aspiration. We will continue with antibiotics, supplement oxygen and bronchodilator therapy. 4. Urinary tract infection. Continue on Rocephin. 5. Bipolar disorder. Continue on Depakote. 6. Schizoaffective disorder. Continue on the current psychiatric medications. 7. Chronic obstructive pulmonary disease. Continue on supplemental oxygen and bronchodilator therapy. 8. Morbid obesity. Aware. 9. Continue with physical therapy. cc: Miriam Hall MD MTDD
[2018-10-26] MEDS: ZYVOX 600 MG/D5W 600 MG/300 ML IVPB IV SCH ×2 (01:49→13:19)
[2018-10-26] MEDS: MAXIPIME 2 GM in NS 100 ML IV SCH ×2 (02:30→12:31)
[2018-10-26] MEDS: DUONEB (A & A) INH SCH ×6 (03:26→23:04)
[2018-10-26 05:13] LABS: ALLEN TEST YES; BE 9.6 mmoll (-3.0-3.0); BLOOD TYPE ARTERIAL; HCO3-(ACT) 32.4 mmoll (20.0-26.0); METHB 1.3 % (0.0-1.5); O2HB 95.9 % (95.0-99.0); PO2(98.6) 97 mmHg (60-100); SAMPLE BLOOD; SAO2 98.7 % (95.0-100.0); THB 11.8 g/dL (11.5-17.4); pH(98.6) 7.37 (7.35-7.45)
[2018-10-26 05:17] LABS: MODALITY PRB; PCO2(98.6) 64 mmHg (35-45)
[2018-10-26] MEDS: PRILOSEC PO SCH (06:58)
[2018-10-26] MEDS: MUCOMYST 20% INH SCH ×2 (08:06→19:38)
[2018-10-26] MEDS: TRILEPTAL PO SCH ×2 (09:38→21:40)
[2018-10-26] MEDS: KLONOPIN PO SCH ×4 (09:38→20:40)
[2018-10-26] MEDS: THERA M PLUS PO SCH (09:39)
[2018-10-26] MEDS: PERICOLACE PO SCH ×2 (09:40→20:40)
[2018-10-26] MEDS: COREG PO SCH ×2 (09:40→20:40)
[2018-10-26] MEDS: DULCOLAX PR SCH (09:40)
[2018-10-26] MEDS: SEROQUEL PO SCH ×2 (09:40→20:40)
[2018-10-26] MEDS: DEPAKOTE PO SCH ×2 (09:40→21:41)
[2018-10-26] MEDS: CALTRATE 600 + D PO SCH (09:40)
[2018-10-26] MEDS: LOVENOX SUBQ SCH ×2 (09:41→20:40)
--- NOTE | 2018-10-26 16:13 | PROGRESS NOTE ---
DATE: 10/26/2018 SUBJECTIVE: Ms. Trejo is awake and alert and appears comfortable and joking with the staff and seems to be in good spirits. OBJECTIVE: Vital Signs: Temperature 98.6 degrees, pulse 82, respirations 16, blood pressure 111/67. Eyes: Pupils are equal and round. Lungs: Clear in all lung pro. Cardiovascular exam: Regular rhythm and rate without murmur or S3. : Urine output is almost 600 mL. ASSESSMENT AND PLAN: 1. Elevated left hemidiaphragm. 2. Mental retardation. 3. Some dysphagia. 4. We are treating her for questionable urinary tract infection. 5. Treating for aspiration pneumonia. 6. Very large hiatal hernia. 7. Morbid obesity. She appears to be breathing comfortably and doing better. She presented with acute hypoxemic respiratory failure, multifactorial, pulmonary embolism and aspiration pneumonia, which seems to be improving. She is on full dose Lovenox, supplemental oxygen, which she is able to wean down and antibiotics. Looking at her present orders, she is on Risperdal 0.5 mg at bedtime, Zocor 40 mg at bedtime, calcium carbonate 1 a day, Coreg 6.25 mg b.i.d., Klonopin 1 mg t.i.d., Depakote 125 mg p.o. b.i.d., Lovenox 90 mg subcutaneous q. 12 hours, Motrin 800 mg p.o. q. 8 hours p.r.n., cefepime 2 g IV q. 12 hours, multivitamin 1 a day, Prilosec 40 mg a day, Trileptal 300 mg b.i.d., Seroquel 25 mg b.i.d., scopolamine 1.5 mg patch q. 72 hours, and sennoside docusate 1 b.i.d., linezolid 600 mg IV q. 12 hours. EKG shows normal sinus rhythm. Seems to be making good progress. We will continue present measures. cc: Jose Guadalupe Martinez MD
[2018-10-26] MEDS: RISPERDAL PO SCH (20:40)
[2018-10-26] MEDS: ZOCOR PO SCH (20:40)
[2018-10-27] MEDS: MAXIPIME 2 GM in NS 100 ML IV SCH (01:46)
[2018-10-27] MEDS: DUONEB (A & A) INH SCH ×3 (04:41→11:39)
[2018-10-27] MEDS: ZYVOX 600 MG/D5W 600 MG/300 ML IVPB IV SCH (05:02)
[2018-10-27] MEDS: PRILOSEC PO SCH (06:33)
[2018-10-27] MEDS: MUCOMYST 20% INH SCH (08:20)
[2018-10-27] MEDS: THERA M PLUS PO SCH (08:59)
[2018-10-27] MEDS: COREG PO SCH (09:00)
[2018-10-27] MEDS: CALTRATE 600 + D PO SCH (09:00)
[2018-10-27] MEDS: TRILEPTAL PO SCH ×2 (09:00→22:14)
[2018-10-27] MEDS: LOVENOX SUBQ SCH (09:00)
[2018-10-27] MEDS: DULCOLAX PR SCH (09:00)
[2018-10-27] MEDS: PERICOLACE PO SCH (09:00)
[2018-10-27] MEDS: SEROQUEL PO SCH (09:00)
[2018-10-27] MEDS: KLONOPIN PO SCH (09:00)
[2018-10-27] MEDS: DEPAKOTE PO SCH ×2 (09:00→22:14)
--- NOTE | 2018-10-27 10:15 | Diag Imaging Result Doc PS360 ---
EXAM: CHEST-PORTABLE HISTORY: aspiration TECHNIQUE: Chest single view 10/24/2018 COMPARISON: None. FINDINGS: There are increased interstitial markings throughout both lungs. The left hemidiaphragm is elevated and there may also be a hiatal hernia. There is contrast within bowel in the mid and lower left chest. IMPRESSION: Increased interstitial markings representing pneumonia or pulmonary edema Electronically signed by Edmond Armendariz 10/27/2018 10:12 AM
[2018-10-27 10:20] LABS: ALLEN TEST YES; BLOOD TYPE ARTERIAL; HCO3-(ACT) 27.3 mmoll (20.0-26.0); METHB 1.1 % (0.0-1.5); O2(CT) 19.8 mL/dL (15.0-23.0); PO2(98.6) 246 mmHg (60-100); SAMPLE BLOOD; SAO2 100.3 % (95.0-100.0); THB 14.1 g/dL (11.5-17.4)
[2018-10-27 10:23] LABS: MODALITY AMBU BAG
--- NOTE | 2018-10-27 10:27 | PROGRESS NOTE ---
DATE: 10/27/2018 SUBJECTIVE: While I was making rounds, she was getting her medicines. She started to aspirate ,was choking, not moving, and she appeared cyanotic. Then, started spitting out chocolate, looked like pudding, which is what they were giving her medicine with. She was unresponsive, was not moving air and appeared to go in asystole. Compressions were started, 1 amp of epi was given. Gave 1, preparing to give 1 amp of bicarbonate. Spontaneous respirations resumed and she was breathing with little resistance, and came back to sinus rhythm with a blood pressure 130/60. I am going to move her to the unit. In discussion with the family, they would like to make her no code, but we will move her to the unit. LAST EXAM: Vital Signs: She is afebrile. Pulse was 100, respirations spontaneous and about 20. She is getting supplementary O2 with face mask. Blood pressure 130/80. Lungs: With scattered rhonchi anterolateral. Cardiovascular exam: Regular rhythm and rate without murmur or S3. Abdomen: Soft. Skin: Warm. PLAN: The plan is to move her to the unit. Suspect aspiration pneumonia or aspiration pneumonitis with probably high risk for that. She has some expiratory wheezing that developed, and we will give her some breathing treatments. Check a chest x-ray. Check blood gases. cc: Jose Guadalupe Martinez MD
[2018-10-27 10:29] LABS: PCO2(98.6) 119 mmHg (35-45)
[2018-10-27] MEDS ORDERED: SODIUM BICARBONATE 8.4% ONE (10:30)
[2018-10-27] MEDS ORDERED: EPINEPHRINE SYRINGE ONE (10:30)
--- NOTE | 2018-10-27 11:44 | CONSULTATION ---
DATE OF CONSULTATION: 10/25/2018 REQUESTING PHYSICIAN: Dr. Miriam Hall REASON FOR CONSULTATION: Pneumonia and respiratory failure. HISTORY OF PRESENT ILLNESS: This is a 68-year-old female with medical history of COPD, chronic respiratory failure, morbid obesity, congestive heart failure, hypertension, hyperlipidemia, dementia, with fairly substantial mental retardation, anemia, schizoaffective disorder and bipolar disorder. She presented to the ER from [facility] for hypoxia and rales or rhonchi. Upon arrival to the ER, she was pale with SaO2 of 60%. Chest CT with contrast in the ER revealed elevated left hemidiaphragm similar to multiple prior plain films, chest pleural fluid and pericardial fluid, small bilateral infiltrates, enlarged thyroid, and embolus at the junction of the left upper and lower lobe pulmonary artery with extension into the left upper lobe pulmonary artery and questionable small pulmonary embolus in the right lower lobe pulmonary artery. She has been admitted to the Medical Floor for further evaluation and management. She has been treated with Lovenox since admission. She also was treated with ceftriaxone and azithromycin for aspiration pneumonia and UTI. Currently, she is on cefepime and linezolid. Respiratory status apparently has been worsened since yesterday afternoon. She is currently on partial rebreather mask with FiO2 of 70%. She does cough once during my assessment, but it is very poor cough effort. She is very lethargic. The bedside nurses reported that she has been lethargic since yesterday and got worse today. There is no family at the bedside, and all information is obtained from the electronic chart. PAST MEDICAL HISTORY: 1. COPD. 2. Chronic respiratory failure. 3. Morbid obesity, current BMI of 40.7. 4. Congestive heart failure. 5. Hypertension. 6. Hyperlipidemia. 7. Dementia with very substantial mental retardation. 8. Anemia. 9. Schizoaffective disorder. 10.Bipolar disorder. PAST SURGICAL HISTORY: Unknown. SOCIAL HISTORY: The patient lives at [facility] for a long time. She has fairly substantial mental retardation, and she is unable to take care of herself or do normal daily activities. She has no alcohol, tobacco or illicit drug use. FAMILY HISTORY: Unknown. ALLERGIES: Penicillin. REVIEW OF SYSTEMS: Unable to be obtained. PHYSICAL EXAMINATION: Vital signs: Temperature is 97.5, blood pressure 114/58, pulse 72, respiratory rate 20, oxygen saturation 100% on partial rebreather with FiO2 of 70%. General: Morbidly obese, lying in bed, on partial rebreather with no apparent active respiratory distress, lethargic and not answering any questions. HEENT: Atraumatic. Trachea midline. Mucosa pink and slightly dry. Respiratory: Respirations even and unlabored. Auscultation reveals severe diminished breathing sounds in the left-sided lung pro and mild diminished breathing sounds on the right lung pro. Cardiovascular: Regular rate and rhythm. Gastrointestinal: Normoactive bowel sounds in all 4 quadrants. Soft, obese. Extremities: Bilateral lower extremity 1+ edema. No cyanosis. No clubbing. Neurologic: Lethargic. Not answering any questions. DIAGNOSTIC DATA: White blood cells are 5.84, hemoglobin 12.5, hematocrit 39.7, platelets 127. Sodium is 141, potassium 4.1, chloride 101, carbon dioxide 33, BUN is 13, creatinine 0.5, glucose 125. IMAGING: Chest x-ray revealed stable interstitial and airspace infiltrates at the mid and lower lung zones bilaterally. ASSESSMENT: This is a 68-year-old female with a medical history of COPD, chronic respiratory failure, morbid obesity, congestive heart failure, hypertension, hyperlipidemia, dementia, anemia, schizoaffective disorder and bipolar disorder. She has been admitted with acute on chronic hypoxic hypercapnic respiratory failure, left-sided pulmonary embolus with questionable right lower lobe pulmonary embolus, aspiration pneumonia and urinary tract infection. 1. Acute on chronic hypoxemic hypercapnic respiratory failure. 2. Pulmonary embolus. 3. Chronic obstructive pulmonary disease with no exacerbation. 4. Very large hiatal hernia. 5. Aspiration pneumonia. 6. Elevated left hemidiaphragm. 7. Urinary tract infection. 8. Morbid obesity. PLAN: 1. Continue supplemental oxygen. BiPAP at bedtime and as needed. 2. Continue on full dose Lovenox as prescribed. 3. Continue on antibiotics and bronchodilators. 4. Follow up with [facility]. 5. Continue aspiration precautions. 6. Continue GI prophylaxis. 7. Further recommendations pending hospital course. Thanks for the courtesy of this consult. Dictated by ANGEL Feng for Wilfred Fuentes MD cc: ANGEL Feng MD [facility]
[2018-10-27] MEDS: MORPHINE IV PRN ×10 (11:45→23:25)
[2018-10-27] MEDS ORDERED: ATIVAN IM PRN (12:01)
--- NOTE | 2018-10-27 13:21 | PROGRESS NOTE ---
DATE: 10/27/2018 SUBJECTIVE: She aspirated and coded, was in asystole for a short time, did chest compressions. Gave her 1 amp of epi and 1 of bicarb. She got her heart rate back. We gave her ventilatory assistance with Ambu bag, and she started breathing on her own. She is tachypneic and looks like she is having more struggle with breathing. She is not waking up. Family wants her no code; in fact, I think they would like to go to comfort measures. OBJECTIVE: Vital Signs: Temperature 97.4 degrees, pulse 90, respirations 30, blood pressure 90/54. Eyes: Pupils are equal and round. Lungs: Clear in all lung pro. Cardiovascular exam: Regular rhythm and rate without murmur or S3. Abdomen: Soft. LABS AND X-RAYS: Blood gas: A pH of 7.10, pCO2 119, and FiO2 on 100% Ambu bag. I did a portable chest x-ray and increased interstitial markings representing pneumonia or pulmonary edema. So, we are going to go to comfort care. I will let her have some morphine. Family was at the bedside. They want to keep her no code level 1. cc: Jose Guadalupe Martinez MD
[2018-10-27] MEDS: ATIVAN IV PRN ×9 (13:38→23:25)
[2018-10-27] MEDS: ATROPINE 1 % OPHTH SOLN SL PRN (18:58)
[2018-10-27 20:18] VITALS: BP 122/54
[2018-10-28] MEDS: MORPHINE IV PRN ×4 (00:40→04:22)
[2018-10-28] MEDS: ATIVAN IV PRN ×3 (01:43→04:22)
[2018-10-28] MEDS: ATROPINE 1 % OPHTH SOLN SL PRN (03:11)
--- NOTE | 2018-10-28 10:41 | Extremity Venous Study ---
PROCEDURE NAME: Venous U/S Bilateral Legs - 10/22/2018 REFERRING PHYSICIAN: Dr. Hall. READING PHYSICIAN: Donald Arredondo MD. ACCOUNT SERVICES ANALYST: Alanis. INDICATION: Rule out DVT. FINDINGS: The deep and superficial veins of the lower extremities were imaged throughout their course. The patient would not cooperate with the exam secondary to a mental handicap. In this limited study, the deep and superficial veins appeared to be compressible and patent without thrombus. INTERPRETATION: No obvious DVT or SVT in either lower extremity. cc: MD Miriam Clifton MD
--- NOTE | 2018-11-08 18:51 | DISCHARGE SUMMARY ---
ADMISSION DATE: 10/21/2018 DISCHARGE DATE: 10/28/2018 TIME OF : 4:35. HISTORY OF PRESENT ILLNESS: A 68-year-old with prior history of hypertension, hyperlipidemia, congestive heart failure, chronic respiratory failure, and anxiety. She presented to the emergency room per EMS. She was found hypoxic at [facility] where she is a long-term resident. According to the chart, patient was found pale with saturation of 60%. Non-rebreather applied by EMS on route. Saturations increased to 93%. On arrival to the emergency, she was placed on 4 L of nasal cannula. Saturations remain 93 to 95%. The patient had substantial mental retardation history and COPD, schizoaffective, bipolar disorder and dementia and we suspected that she had a seizure and aspirated. She seemed to improve with IV antibiotics and we continue her anti epileptics and she radiographically seemed to improve as well. We were getting ready to try and send her home on 10/27/2018. While I was rounding, she aspirated and she had eaten some chocolate pudding to try to get her medicine down. She aspirated a good quantity. She was not breathing or moving air. We suctioned her out well and were about to intubate. The family were adamant to not pursue any invasive measures and wanted her no code and so she did start having spontaneous respirations. We did do chest compressions for several minutes. We gave her an amp of epi and an amp of bicarbonate. She never really responded after that even to noxious stimuli. She did have some posturing that I saw right at the point of when she was choking and family wanted to pursue comfort measures with true care and she was moved to the unit and she developed asystole on telemetry. Time of was 4:35 on 10/28/2018. cc: Jose Guadalupe Martinez MD
== END 2018-10-28 04:35 | disposition expired | DRG 177 ==
LOC: ED 03:11 → SUATTDRO 09:13 → 3N 09:13 → ICU 10-27 10:13 → 3N 10-27 17:58
PROVIDERS: ATTEND Emergency Medicine
CPT/HCPCS: 71010; 71045; 71260; 74230; 80048; 80053; 81001; 81240; 81241; 82140; 82805; 83090; 83605; 83735; 83880; 84443; 84484; 85025; 85027; 85300; 85301; 85302; 85306; 85612; 85613; 85730; 86147; 86900; 86901; 87040; 87088; 87275; 87276; 87804; 92611; 93005; 93010; 93306; 93970; 94640; 94760; 94761; 94762; 96365; 96372; 97161; 99285; A9270; C8929; J0171; J0692; J0696; J1650; J2020; J2060; J2270; J7070; Q9957; Q9967